=== PATIENT | female | born 1960 | race Caucasian/White ===

== ENCOUNTER 2019-11-15 05:40 | Outpatient (CLI) | payer OTHER ==
[~2019-11-15] VITALS: Ht 157 cm; Wt 52.7 kg
[2019-11-15] MEDS ORDERED: ESTR2TAB PO (12:35)
[2019-11-15] MEDS ORDERED: OMEP-280 PO (12:35)
== END 2019-11-15 12:39 | disposition home or self-care (01) ==
LOC: PREOP 05:40
PROVIDERS: ATTEND Surgery
DX: Z01.818 Encounter for other preprocedural examination (principal)